=== PATIENT | male | born 1955 | race Two or more races ===

== ENCOUNTER 2024-08-28 14:53 | Outpatient (CLI) | payer BC, SELFPAY ==
[2024-08-28 15:24] LABS: Basophils Absolute Auto 0.04 K/mm3 (0.00-0.10); Basophils Percent Auto 0.5 % (0.0-1.0); Eosinophils Absolute Auto 0.22 K/mm3 (0.02-0.50); Eosinophils Percent Auto 2.8 % (1.0-6.0); Hematocrit 40.7 % (37.0-46.0); Hemoglobin 12.8 g/dL (12.4-15.3); Immature Granulocyte Absolute 0.05 K/mm3 (0.00-0.00); Immature Granulocyte Percent A 0.6 % (0.0-0.0); Lymphocytes Absolute Auto 1.75 K/mm3 (1.10-4.50); Lymphocytes Percent Auto 22.5 % (18.0-42.0); Mean Corpuscular HGB Conc 31.4 g/dL (32-36); Mean Corpuscular Hemoglobin 29.4 pg (27.0-31.0); Mean Corpuscular Volume 93.6 fL (78.0-102.0); Mean Platelet Volume 12.5 fl (8.7-11.0); Monocytes Absolute Auto 0.89 K/mm3 (0.10-0.90); Monocytes Percent Auto 11.4 % (2.0-11.0); Neutrophils Absolute Auto 4.83 K/mm3 (1.70-7.20); Neutrophils Percent Auto 62.2 % (50.0-70.0); Platelet Count Result 133 K/mm3 (150-420); Red Blood Count 4.35 M/mm3 (4.70-6.10); Red Cell Distribution Width 13.1 % (11.6-14.4); White Blood Count 7.8 K/mm3 (4.8-10.8)
[2024-08-28 15:34] LABS: Hemoglobin A1C 6.6 % (<5.7)
[2024-08-28 16:40] LABS: Alanine Aminotransferase 38 U/L (6-50); Alkaline Phosphatase 119 U/L (38-126); Anion Gap 5 mmol/L (4-12); Aspartate Amino Transferase 36 U/L (17-59); Bilirubin,Total 0.5 mg/dL (0.2-1.3); Blood Urea Nitrogen 31 mg/dL (9-20); Calcium 9.5 mg/dL (8.4-10.2); Carbon Dioxide 26 mmol/L (22-30); Chloride 109 mmol/L (98-107); Estimated Glomerular Filt Rate 45; Glucose 145 mg/dL (65-110); Osmolality Calculated 299 mOsm/kg (285-295); Potassium 4.3 mmol/L (3.4-5.0); Sodium 140 mmol/L (137-145); Total Protein 6.6 g/dL (6.3-8.2)
--- OUTSIDE RECORDS SUMMARY | 2024-08-28 17:31 | XMS_ITS ---
Author Organization [facility] Address [address] [place] [address] Care Team Providers Care Progress Man Name Role Phone Trudi Davis RN Unavailable [phone] Vinay Schmitt MD Unavailable Glenna Garcia MD Primary Care Provider Transplant Episode Kidney Recipient [facility] ([place], [place]) - [facility] Transplanted on 10/13/2004 Marked as Active Follow-up on 08/21/2017 Kidney CoordinatorTrudi Davis RN Fax: N/A Email: N/A Transplanted Elsewhere: [facility] ([place], [place]) - [facility] Coordinator: Phone: Fax: Care Team Name Role Phone Fax Email Trudi Davis RN Kidney Coordinator [phone] N/A N/A Ivelisse Kat Primary Advanced Research Programs Director N/A N/A N/A Aurea Walsh RN Secondary Coordinator Secondary Kidney Coordinator [phone] N/A N/A Tyra Dukes Secondary Advanced Research Programs Director N/A N/A N/A Trudi Davis RN Sandal Parts Assembler [phone] N/A N/A Events Post-Transplant Pre-Transplant Transplanted: 10/13/2004
--- OUTSIDE RECORDS SUMMARY | 2024-08-28 17:31 | XMS_ITS | Referral Summary ---
Author Organization [facility] Address [address] [place] [address] Care Team Providers Care Magazine Worker Name Role Phone Trudi Davis RN Unavailable [phone] Vinay Schmitt MD Unavailable Glenna Garcia MD Primary Care Provider Encounters Date Type Department Care Team Description 08/26/2024 7:06 AM CDT - 08/26/2024 11:59 PM CDT Hospital Encounter [facility] Imaging [address] [place] [address] Left elbow pain Discharge Disposition: Discharge to home or self care 08/26/2024 8:30 AM CDT Office Visit [facility] Hand Surgery [address] [facility] [address] [place] [phone] Dakota Calderon MD Left elbow pain (Primary Dx); Numbness and tingling of left hand; Cubital tunnel syndrome on left from Last 3 Months Allergies Active Allergy Reactions Criticality Noted Date Comments Dapagliflozin Nausea & Vomiting Low 04/28/2022 Lisinopril Cough Low 06/03/2013 Medications BD Ultra-Fine Erika Pen Needle 32 gauge x needleIndication s:Uncontrolled type 2 diabetes mellitus with hyperglycemia (HCC),Insulin long-term use (HCC) 4 times as instructed. 360 each 3 05/28/19 23 Active insulin syringe-needle U-100 (BD Insulin Syringe Ultra-Fine) 0.3 mL 31 gauge x 5/16 syringeIndicatio ns:Type 2 diabetes mellitus with hyperglycemia, with long-term current use of insulin (HCC),Insulin long-term use ([facility]) Use to inject 3 times a day. 300 each 3 04/10/19 24 Active terazosin (HYTRIN) 5 mg capsule Take 1 capsule (5 mg total) by mouth daily 90 capsule 3 12/28/19 24 Active aspirin 81 mg chewable tablet Take 1 tablet (81 mg total) by mouth daily 90 tablet 3 01/08/20 24 Active atorvastatin (Lipitor) 80 mg tablet Take 1 tablet (80 mg total) by mouth daily 90 tablet 3 03/07/20 24 025 Active mycophenolate mofetil (CELLCEPT) 250 mg capsule Take 2 capsules (500 mg total) by mouth 2 (two) times a day 360 capsule 4 03/07/20 24 Active Prograf 1 mg immediate-releas e capsule TAKE 2 CAPSULES BY MOUTH TWICE DAILY. AVOID GRAPEFRUIT 360 capsule 3 03/07/20 24 Active losartan (COZAAR) 25 mg tablet Take 1 tablet (25 mg total) by mouth daily AND 0.5 tablets (12.5 mg total) nightly. 25 am 12.5 pm. 135 tablet 3 03/07/20 24 025 Active BD Insulin Syringe, half unit, 0.3 mL 31 gauge x 5/16 syringe 12/26/19 24 Active cyanocobalamin (Vitamin B-12) 500 mcg tablet Take 1 tablet (500 mcg total) by mouth daily 90 tablet 3 03/14/20 24 Active insulin lispro (HumaLOG, ADMELOG) 100 unit/mL vial for injectionIndicat ions:Insulin long-term use ([facility]) Inject 5-8 (5 small meal, 8 large meal) units SubQ AC meal, insulin sensitivity factor 25 (add 2 unit for every 50mg/dl glucose more than 150mg/dl). Max 60 units/day 60 mL 3 03/15/20 24 025 Active FreeStyle Jong 3 Sensor deviceIndication s:Insulin long-term use ([facility]) Jong 3 sensor, use to monitor blood glucose levels as directed. Change every 14 days. 6 each 3 03/15/20 24 Active predniSONE (DELTASONE) 2.5 mg tablet Take 1 tablet (2.5 mg) by mouth daily 90 tablet 3 03/29/19 25 Active LANTUS 100 unit/mL (3 mL) pen for injectionIndicat ions:Type 2 diabetes mellitus with hyperglycemia, with long-term current use of insulin (HCC),Insulin long-term use (HCC) INJECT 21 UNITS SUBCUTANEOUSLY IN THE MORNING 30 mL 1 07/05/19 25 Active rivaroxaban (XARELTO) 2.5 mg tablet Take 1 tablet (2.5 mg total) by mouth 2 (two) times a day Active Brilinta 90 mg tablet Take 1 tablet (90 mg total) by mouth 2 (two) times a day 025 Discontin ued(Thera py completed ) Active Problems Patient Care Coordination No te Formatting of this note migh t be different from the original. Lab: [facility] SO: Q-Monthly UPE, FK; Q-3 Routine HGBA1C (05/23/2025) Problem Noted Date Diagnosed Date Cubital tunnel syndrome on left 08/26/2024 Left elbow pain 08/26/2024 Numbness and tingling of left hand 08/21/2023 Encounter for long-term (cur rent) use of high-risk medication 03/09/2020 Dyslipidemia 03/09/2020 Early dry stage nonexudative age-related macular degeneration of both eyes 08/02/2018 Assessment & Plan (11/08/2021 1:37 PM CDT): Continue Amsler grid and call if any visual changes. Can consider AREDS 2 formulation vitamins given intermediate sized drusen. Continue healthy diet and UV protection. Follow annually or sooner prn. Assessment & Plan (08/02/2018 9:46 AM CDT): Gave Amsler grid and instructions. Encourage healthy diet and UV protection. Cataract, nuclear sclerotic, both eyes 9 Assessment & Plan (11/08/2021 1:36 PM CDT): NVS, follow. Assessment & Plan (08/02/2018 9:46 AM CDT): NVS, follow. Optic nerve cupping of both eyes 08/02/2018 Assessment & Plan (11/08/2021 1:37 PM CDT): Moderate CDR OU and normal IOP, follow. Assessment & Plan (08/02/2018 9:47 AM CDT): Low-nl IOP and healthy optic nerve appearance. Follow. STEMI (ST elevation myocardial infarction) 11/14 Assessment & Plan (11/17/2017 11:39 AM CDT): Presented to OSH with CP radiating to jaw. EKG with IDALIA in inferior leads and TWI in lateral leads. Troponin neg x 2. Taken to rags laborer and got stents to RCA. Trop uptrended from 0.12 to 1.73 overnight Plan for staged intervention to LAD to LCx. - ASA, Plavix, statin, metoprolol - TTE normal Troponin elevated from 3 to 4.59 with some chest discomfort Status post Staged intervention today to LAD and Circumflex Assessment & Plan (11/15/2017 7:06 AM CDT): Presented to OSH with CP radiating to jaw. EKG with IDALIA in inferior leads and TWI in lateral leads. Troponin neg x 2. Taken to rags laborer and got stents to RCA. Plan for staged intervention to LAD to LCx. - ASA, Plavix, statin, metoprolol - TTE CAD (coronary artery disease) 11/14/2017 Assessment & Plan (11/17/2017 11:40 AM CDT): Last stress TTE 2002 negative. Presented with inferolateral STEMI Status post PCI with 3 v stenting to LAD, circ and RCA - ASA, Plavix, metoprolol, atorvastatin Assessment & Plan (11/14/2017 8:03 PM CDT): Last stress TTE 2002 negative. - ASA, Plavix, metoprolol, atorvastatin Hypertension 05/01/2017 Assessment & Plan (11/15/2017 1:06 PM CDT): Continue metoprolol 25 mg, amlodipine 2.5, clonidine 0.1 mg daily Lisinopril was trialed but discontinued due to worsening of kidney function Assessment & Plan (11/14/2017 8:03 PM CDT): ctn amlodipine, clonidine, metoprolol. Previously trialed on ACEI but developed SHEILA. 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 Continue strict BS control, annual dilated eye exams. Assessment & Plan (08/02/2018 9:45 AM CDT): No retinopathy on dilated eye exam today. Okay to follow with annual dilated eye exams Assessment & Plan (11/15/2017 12:57 PM CDT): Post transplant diabetes secondary to tacrolimus and terminal operator use of steroids Hold home metformin and glimeperide Start LDSSI Assessment & Plan (11/14/2017 8:03 PM CDT): posttransplant DM. 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 F/b nephrology here. - Ctn prednisone, prograf, cellcept - Renal transplant aware of admission Immunizations Immunization Administration Dates Next Due Influenza, Unspecified 12/19/2022 Pfizer SARS-CoV-2 Monovalent Vaccination (12+ Yrs) COSTELLO-READY TO USE 10/05/2021 Pneumococcal Conjugate PCV 13 06/03/2013 Social History Tobacco Use Types Packs/Day Years Used Date Smoking Tobacco: Former Cigarettes 0.5 5 1 985 - 1989 Passive Smoke Exposure: Never Smokeless Tobacco: Never Tobacco Cessation:Counseling Given: Not Answered Alcohol Use Standard Drinks/Week Comments No 0 (1 standard drink = 0.6 oz pur e alcohol) AUDIT-C Answer Date Recorded Q1: How often do you have a drink containing alcohol? Never 08/27/2024 Q2: How many drinks containi ng alcohol do you have on a typical day when you are drinking? Patient does not drink Q3: How often do you have si x or more drinks on one occasion? 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 Not on file Not on file Last Filed Vital Signs Vital Sign Reading Time Taken Comments Blood Pressure 142/84 03/07/2024 4:20 PM UTILIZATION ENGINEER Pulse 74 03/07/2024 4:20 PM UTILIZATION ENGINEER Temperature 36.4 C (97.6 F) 03/07/2024 4:20 PM UTILIZATION ENGINEER Respiratory Rate 18 07/25/2023 1:59 PM CDT Oxygen Saturation 96% 07/25/2023 1:59 PM CDT Inhaled Oxygen Concentration - - Weight 68 kg (150 lb) 08/27/2024 9:05 AM CDT Height 162.6 cm (5' 4) 08/27/2024 9:05 AM CDT Body Mass Index 25.75 08/27/2024 9:05 AM CDT Plan of Treatment Upcoming Encounters Date Type Department Care Team (Latest Contact Info) Description 08/29/2024 11:00 AM CDT Hospital Encounter [facility] [place] [address] [place] [address] Dakota Calderon MD [address] [facility] [place] [address] 08/29/2024 11:00 AM CDT Anesthesia Event [facility] [place] [address] [place] [address] Drake Jackson MD [address] [address] 08/29/2024 11:00 AM CDT - 08/29/2024 12:00 PM CDT Surgery [facility] [place] [address] [place] [address] Dakota Calderon MD [address] [address] LEFT ELBOW ULNAR NERVE DECOMPRESSION Scheduled Procedures Name Priority Associated Diagnoses Date/Ti me DECOMPRESSION ULNAR NERVE Cubital tunnel syndrome on left Left elbow pain 08/29/2024 11:00 AM CDT Medical Devices Implanted Type Area Underwater Welder Device Identifier Shelf Expiration Date Model / Serial / Lot [employer]onic [employer] X [id number] Resolute [place] 3.5mm 2.1-2.7fr 38mm 140cm Rapid Exchange - [id number] Implanted:Qty: 1 on 11/14/2017 by Pepe Dawkins MD at [facility] Stent [employer] X 06/23/2019 [id number] X / / [id number] [employer] X [id number] Resolute [place] 4mm 2.1-2.7fr 8mm 140cm Rapid Exchange Radiopaque 1 - [id number] Implanted:Qty: 1 on 11/14/2017 by Pepe Dawkins MD at [facility] Stent [employer] X 06/22/2019 [id number] X / / [id number] [employer] [id number] Xience Alpine 3.5mm 38mm 145cm Rapid Exchange Radiopaque 1 Access - [id number] Implanted:Qty: 1 on 11/16/2017 by Pepe Dawkins MD at [facility] [employer] 02/16/2020 [id number] / / [id number] [employer] [id number] Xience Alpine 3.5mm 38mm 145cm Rapid Exchange Radiopaque 1 Access - [id number] Implanted:Qty: 1 on 11/16/2017 by Pepe Dawkins MD at [facility] [employer] 05/21/2020 [id number] Procedures Procedure Name Priority Date/Time Associated Diagnosis Comments EGFR Routine 05/27/2024 10:44 AM CDT Kidney replaced by transplant POCT HEMOGLOBIN A1C Routine 03/07/2024 4 :33 PM UTILIZATION ENGINEER Type 2 diabetes mellitus with hyperglycemia, with long-term current use of insulin (HCC) LIPID PANEL Routine 09/26/2023 5:11 PM CDT Kidney transplanted Hyperlipidemia, unspecified hyperlipidemia type PSA SCREEN Routine 02/14/2023 10:31 AM UTILIZATION ENGINEER Kidney transplant recipient TSH Routine 12/22/2022 11:23 AM CDT Uncontrolled type 2 diabetes mellitus with hyperglycemia (HCC) from Last 3 Months or Most Recently Relevant to Health Maintenance Results * (ABNORMAL) eGFR (05/27/2024 10:44 AM CDT) eGFR 45(L) >=60 mL/min/1. 73 m2 Comment: Interpretive Data Reference Interval Normal >/= 90 mL/min/1.73m2 Mildly decreased* 60 - 89 mL/min/1.73m2 Mildly to moderately decreased 45 - 59 mL/min/1.73m2 Moderately to severely decreased 30 - 44 mL/min/1.73m2 Severely decreased 15 - 29 mL/min/1.73m2 Kidney Failure < 15 mL/min/1.73m2 *Relative to young adult level Estimated glomerular filtration rate is determined by the 2020 CKD-EPI equation recommended by the National Kidney Foundation (A Unifying Approach to GFR Estimation: Recommendations of the NKF-ASK Task Force on Reassessing the Inclusion of Race in Diagnosing Kidney Disease, JASN 2020). The CKD-EPI equation should not be used for patients with unstable renal function and has not been validated in children and those over 70. Current interpretive data was last reviewed 2021. Blood 05/27/2024 10:4 4 AM CDT 05/27/2024 11:53 AM CDT Glenna Garcia MD LAB BLOOD ORDERABLES Final Resu lt [facility] [place] [address] * POCT hemoglobin A1c (03/07/2024 4:33 PM UTILIZATION ENGINEER) Hemoglobin A1C, POC 7.0 4.0 - 5.6 % Blood 03/07/2024 4:33 PM UTILIZATION ENGINEER Jane Mccarty MD POINT OF CARE TEST ORDERABLES Fi nal Result * Lipid panel (09/26/2023 5:11 PM CDT) Cholesterol 132 30 - 199 mg/dL Comment: Interpretive Data Ages < or = 19 years Acceptable: <170 mg/dL Borderline high: 170-199 mg/dL High: >or= 200 mg/dL Ages > or = 20 years Desirable: <200 mg/dL Borderline high: 200-239 mg/dL High: >or= 240 mg/dL Literature References: 1. Expert Panel on Integrated Guidelines for Cardiovascular Health and Risk Reduction in Children and Adolescents. Pediatrics 2011;128:S213 2. NCEP Expert Panel. Circulation 2004;110:227 Current Interpretive Data was last revised on 2017. Triglycerides 100 <=149 mg/dL [facility] Comment: Interpretive Data Ages < or = 9 years Acceptable: <75 mg/dL Borderline high: 75-99 mg/dL High: >or= 100 mg/dL Ages 10 to 20 years Acceptable: <90 mg/dL Borderline high: 90-129 mg/dL High: >or= 130 mg/dL Ages > or = 20 years Desirable: <150 mg/dL Borderline high: 150-199 mg/dL High: 200-499 mg/dL Very high: >or= 499 mg/dL Literature References: 1. Expert Panel on Integrated Guidelines for Cardiovascular Health and Risk Reduction in Children and Adolescents. Pediatrics 2011;128:S213 2. NCEP Expert Panel. Circulation 2004;110:227 Current Interpretive Data was last revised on 2017. HDL 50 >=40 mg/dL [facility] Comment: Interpretive Data Ages < or = 19 years Acceptable: >45 mg/dL Borderline low: 40-45 mg/dL Low: <40 mg/dL Ages > or = 20 years Desirable: >or= 60 mg/dL Low: <40 mg/dL Literature References: 1. Expert Panel on Integrated Guidelines for Cardiovascular Health and Risk Reduction in Children and Adolescents. Pediatrics 2011;128:S213 2. NCEP Expert Panel. Circulation 2004;110:227 Current Interpretive Data was last revised on 2017. LDL, calculated 62 <=129 mg/dL [facility] Comment: Interpretive Data Ages < or = 19 years Acceptable: <110 mg/dL Borderline high: 110-129 mg/dL High: >or= 130 mg/dL Ages > or = 20 years Optimal: <100 mg/dL Near optimal: 100-129 mg/dL Borderline high: 130-159 mg/dL High: >160 mg/dL Literature References: 1. Expert Panel on Integrated Guidelines for Cardiovascular Health and Risk Reduction in Children and Adolescents. Pediatrics 2011;128:S213 2. NCEP Expert Panel. Circulation 2004;110:227 Current Interpretive Data was last revised on 2017. Non-HDL Cholesterol 82 mg/dL [facility] Comment: Interpretive Data Ages < or = 19 years Acceptable: <120 mg/dL Borderline high: 120-144 mg/dL High: >145 mg/dL Ages > or = 20 years When triglycerides are >200 mg/dL, Non-HDL cholesterol is a secondary target of therapy with treatment goals that are 30 mg/dL greater than the LDL cholesterol target. Literature References: 1. Expert Panel on Integrated Guidelines for Cardiovascular Health and Risk Reduction in Children and Adolescents. Pediatrics 2011;128:S213 2. NCEP Expert Panel. Circulation 2004;110:227 Current Interpretive Data was last revised on 2017. Chol/HDL ratio 3 [facility] Blood 09/26/2023 5:11 PM CDT 09/26/2023 5:38 PM CDT Narrative [facility] - 09/26/2023 6:11 PM CDT PLEASE OBTAIN ELY, APR, SEP AND DEC. Glenna Garcia MD LAB BLOOD ORDERABLES Final Resu lt [facility] [place] [address] * PSA screen (02/14/2023 10:31 AM UTILIZATION ENGINEER) PSA-Total 0.79 <=5.40 ng/mL [facility] Comment: Interpretive Data AGE SEX REFERENCE INTERVAL 0 minutes-150 years Female None 0 minutes-49 years Male None 50-59 years Male 0-3.90 60-69 years Male 0-5.40 70-79 years Male 0-6.20 80-150 years Male 0-6.20 The Object Matrix PSA Total assay procedure was used. Results from different manufacturers or methods may not be comparable. Serial testing should be performed using the same method. Current interpretive data last revised 21. Blood 02/14/2023 10:3 1 AM UTILIZATION ENGINEER 02/14/2023 10:58 AM UTILIZATION ENGINEER us Marsha Oliver MD LAB BLOOD ORDERABLE S Final Result Performing Organization Address [facility] Co de Phone Number [facility] [place] [address] * TSH (12/22/2022 11:23 AM CDT) Thyroid Stimulating Hormone 3.15 0.30 - 4.20 mcIUnit/mL [facility] Blood 12/22/2022 11:2 3 AM CDT 12/22/2022 11:43 AM CDT Emili Cazares MD LAB BLOOD ORDERABL ES Final Result Performing Organization Address [facility] Co de Phone Number [facility] [place] [address] from Last 3 Months or Most Recently Relevant to Health Maintenance Insurance [facility] CHOICE PLUS [facility] HMO/PPO Address: [address] [address] [place] [address] ANTHEM ACCESS BLUE ACCESS OOS ANTHEM ACCESS ANTHEM ACCESS Advance Directives For more information, please contact: [phone] * Full Code (Latest Code Status on File) Date Activated Date Inactivated Comments 11/15/2017 7:35 PM 11/17/2017 3:30 PM * Full Code Date Activated Date Inactivated Comments 11/14/2017 6:44 PM 11/15/2017 7:35 PM Care Teams Magazine Worker Relationship Specialty Start Date End Date Glenna Garcia MD [address] [place] [address] PCP - General Transplant 12/31/21 Trudi Davis, RN [address] [place] [address] Sheet Folder 09/23/19 Vinay Schmitt MD [address] [place] [address] Consulting Physician Cardiology 12/07/21
--- OUTSIDE RECORDS SUMMARY | 2024-08-28 17:31 | XMS_ITS | Encounter Summary ---
Author Organization [facility] Address [address] [place] [address] Phone Care Team Providers Care Geophysics Professor Name Role Phone Ping Gooden Primary Care Provider Unavail able Ping Gooden MD Primary Care Provider Trudi Davis RN Unavailable [phone] Vinay Schmitt MD Unavailable Glenna Garcia MD Primary Care Provider [phone] Encounter Details Date Type Department Care Team (Late st Contact Info) Description 02/06/2017 Orders Only [facility] ProviderKristan MD [address] [place] [address] Social History Tobacco Use Types Packs/Day Years Used Date Smoking Tobacco: Never Assessed Sex and Gender Information Value Date Recorded Sex Assigned at Not on file Legal Sex Male 5:57 PM CHAIRMAN AND CHIEF EXECUTIVE OFFICER Gender Identity Not on file Sexual Orientation Not on file documented as of this encounter Plan of Treatment Upcoming Encounters Date Type Department Care Team (Latest Contact Info) Description 08/29/2024 11:00 AM CDT Hospital Encounter [facility] [place] [address] [place] [address] Dakota Calderon MD [address] [facility] [address] [address] 08/29/2024 11:00 AM CDT Anesthesia Event [facility] [place] [address] [place] [address] Drake Jackson MD [address] [facility] [address] [place], [place] [id number] 08/29/2024 11:00 AM CDT - 08/29/2024 12:00 PM CDT Surgery [facility] [place] [address] [place] [address] Dakota Calderon MD [address] [facility] [address] [place] [address] LEFT ELBOW ULNAR NERVE DECOMPRESSION Scheduled Procedures Name Priority Associated Diagnoses Date/Ti me DECOMPRESSION ULNAR NERVE Cubital tunnel syndrome on left Left elbow pain 08/29/2024 11:00 AM CDT documented as of this encounter Procedures Procedure Name Priority Date/Time Associated Diagnosis Comments DISCHARGE LABORATORY CUMULATIVE REPORT 02/06/2017 12:00 AM CHAIRMAN AND CHIEF EXECUTIVE OFFICER documented in this encounter Results * DISCHARGE LABORATORY CUMULATIVE REPORT (02/06/2017 12:00 AM CHAIRMAN AND CHIEF EXECUTIVE OFFICER) Narrative 02/06/2017 12:00 AM CHAIRMAN AND CHIEF EXECUTIVE OFFICER Ordered by an unspecified provider. Historical Provider LAB BLOOD ORDERABLES Radha l Result documented in this encounter Visit Diagnoses Not on filedocumented in this encounter Care Teams Geophysics Professor Relationship Specialty Start Date End Date Ping Gooden PCP - General 06/23/16 09/30/18 Ping Gooden MD [address] [place] [address] PCP - General 10/01/18 12/06/21 Glenna Garcia MD [address] [facility] [address] [place] [address] PCP - General Transplant 12/31/21 Trudi Davis, RN [address] [place] [address] Report Analyst 09/23/19 Vinay Schmitt MD [address] [address] Consulting Physician Cardiology 12/07/21 documented as of this encounter
--- OUTSIDE RECORDS SUMMARY | 2024-08-28 17:31 | XMS_ITS | Encounter Summary ---
Author Organization [facility] Healthcare Address [address] [facility] [address] [facility] [address] [place] [address] Care Team Providers Care Coke Drawer Hand Name Role Phone Trudi Davis RN Unavailable [phone] Vinay Schmitt MD Unavailable Glenna Garcia MD Primary Care Provider [phone] Encounter Details Date Type Department Care Team (Latest Contact Info) Description 08/26/2024 7:06 AM CDT - 08/26/2024 11:59 PM CDT Hospital Encounter [facility] [address] [place] [address] Left elbow pain Discharge Disposition: Discharge to home or self care Social History Tobacco Use Types Packs/Day Years Used Date Smoking Tobacco: Former Cigarettes 0.5 5 1 985 - 1989 Passive Smoke Exposure: Never Smokeless Tobacco: Never Alcohol Use Standard Drinks/Week Comments No 0 [...] on file Legal Sex Male 5:57 PM [employer] Gender Identity Not on file Sexual Orientation Not on file 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 360 each 3 3 cyanocobalamin (Vitamin B-12) 500 mcg tablet Take 1 tablet (500 mcg total) by mouth daily 90 tablet 3 4 FreeStyle Jong 3 Sensor deviceIndications: Insulin long-term use (HCC) Jong 3 sensor, use to monitor blood glucose levels as directed. Change every 14 days. 6 each 3 4 insulin lispro (HumaLOG, ADMELOG) 100 unit/mL vial for injectionIndicatio ns:Insulin long-term use (HCC) Inject 5-8 (5 small meal, 8 large meal) units SubQ AC meal, insulin sensitivity factor 25 (add 2 unit for every 50mg/dl glucose more than 150mg/dl). Max 60 units/day 60 mL 3 4 03/15/20 25 insulin syringe-needle U-100 (BD Insulin Syringe Ultra-Fine) 0.3 mL 31 gauge x 5/16 syringeIndications :Type 2 diabetes mellitus with hyperglycemia, with long-term current use of insulin (HCC),Insulin long-term use (HCC) Use to inject 3 times a day. 300 each 3 4 LANTUS 100 unit/mL (3 mL) pen for injectionIndicatio ns:Type 2 diabetes mellitus with hyperglycemia, with long-term current use of insulin (HCC),Insulin long-term use (HCC) INJECT 21 UNITS SUBCUTANEOUSLY IN THE MORNING 30 mL 1 5 losartan (COZAAR) 25 mg tablet Take 1 tablet (25 mg total) by mouth daily AND 0.5 tablets (12.5 mg total) nightly. 25 am 12.5 pm. 135 tablet 3 4 03/07/20 25 mycophenolate mofetil (CELLCEPT) 250 mg capsule Take 2 capsules (500 mg total) by mouth 2 (two) times a day 360 capsule 4 4 predniSONE (DELTASONE) 2.5 mg tablet Take 1 tablet (2.5 mg) by mouth daily 90 tablet 3 5 Prograf 1 mg immediate-release capsule TAKE 2 CAPSULES BY MOUTH TWICE DAILY. AVOID GRAPEFRUIT 360 capsule 3 4 rivaroxaban (XARELTO) 2.5 mg tablet Take 1 tablet (2.5 mg total) by mouth 2 (two) times a day terazosin (HYTRIN) 5 mg capsule Take 1 capsule (5 mg total) by mouth daily 90 capsule 3 4 Brilinta 90 mg tablet Take 1 tablet (90 mg total) by mouth 2 (two) times a day 08/28/19 25 documented as of this encounter Discharge Disposition Disposition Code Departure Means Destination Discharge to home or self care documented in this encounter Plan of Treatment Upcoming Encounters Date Type Department Care Team (Latest Contact Info) Description 08/29/2024 11:00 AM CDT Hospital Encounter [facility] OR [address] [place] [id number] Dakota Calderon MD [address] [place] [address] DR FRIEDMAN [address] [place] [id number] 08/29/2024 11:00 AM CDT Anesthesia Event [facility] OR [address] [place] [id number] Drake aJckson MD [address] [place] [id number] 08/29/2024 11:00 AM CDT - 08/29/2024 12:00 PM CDT Surgery [facility] OR [address] [place] [id number] Dakota Calderon MD [address] [place] [address] [place] [address] LEFT ELBOW ULNAR NERVE DECOMPRESSION Pending Results Name Type Priority Associated Diagnoses Date /Time XR Elbow Left 3 or More Views Imaging Schedule Routine, Read Routine (OP Routine) Left elbow pain 08/26/2024 7:11 AM CDT Scheduled Orders Name Type Priority Associated Diagnoses Orde r Schedule XR Elbow Left 3 or More Views Imaging Schedule Routine, Read Routine (OP Routine) Left elbow pain Once for 1 Occurrences starting 08/26/2024 until 08/26/2024 Scheduled Procedures Name Priority Associated Diagnoses Date/Ti me DECOMPRESSION ULNAR NERVE Cubital tunnel syndrome on left Left elbow pain 08/29/2024 11:00 AM CDT documented as of this encounter Visit Diagnoses Diagnosis Left elbow pain Pain in joint, upper arm Cubital tunnel syndrome on left Left elbow pain Pain in joint, upper arm Cubital tunnel syndrome on left Left elbow pain Pain in joint, upper arm documented in this encounter Care Teams Coke Drawer Hand Relationship Specialty Start Date End Date Glenna Garcia MD [address] [place] [address] PCP - General Transplant 12/31/21 Trudi Davis RN [address] [place] [address] Clinical Research Specialist 09/23/19 Vinay Schmitt MD [address] [place] [address] Consulting Physician Cardiology 12/07/21 documented as of this encounter
--- OUTSIDE RECORDS SUMMARY | 2024-08-28 17:31 | XMS_ITS | CONTINUITY OF CARE DOCUMENT ---
Author Name erica erica Address Unknown Organization [facility] Office Address [address] [place] [address] Phone [phone] Care Team Providers Care Mirror Maker Name Role Phone Oskar FULLER, Vinay Unavailable [phone] ROBERTO CARLOS VILLARREAL MD Unavailable PROBLEMS Condition Status Date Provider Notes Coronary Heart Disease active [facility] Oskar Weber Diabetes, Type 2 active [facility] Oskar FULLER Hyperlipidemia active Vinayman Schmitt MD Hypertension active [facility] Oskar FULLER Kidney Disease active [facility] Oskar FULLER ENCOUNTERS Date Type Provider Location Encounter Diag nosis - In-person encounter Office Visit [facility] - In-person encounter Office Visit [facility] Coronary Heart DiseaseDiabetes, Type 2HyperlipidemiaHype rtensionKidney Disease VITAL SIGNS Date Observation Value Provider Body Mass Index (Ratio) 27.46 kg/m2 Demarcusdamari bienvenido Shane blood pressure, resting Yes [place] child O'Geovani blood pressure, diastolic 80 mm[Hg] Ma rsha O'Geovani blood pressure, systolic 122 mm[Hg] Jemma sha O'Geovani oxygen saturation, oximetry 97 % Griselda O'Geovani respiratory rate E&M 18 /min Griselda O'Geovani pulse rate 67 /min Griselda O'Geovani weight E&M 160 [lb_av] Griselda O'Geovani height E&M 64 [in_i] Griselda O'Geovani Body Mass Index (Ratio) 27.32 kg/m2 man Schmitt MD blood pressure, diastolic 119 mm[Hg] Li nkLogic blood pressure, systolic 175 mm[Hg] Gayle kLogic blood pressure, cuff size large Br enda Moutray blood pressure, diastolic 119 mm[Hg] Br enda Moutray blood pressure, systolic 175 mm[Hg] Katja nda Moutray oxygen saturation, oximetry 99 % Pari Moutray respiratory rate E&M 16 /min Pari Moutray pulse rate 60 /min Pari Moutray weight E&M 159.2 [lb_av] Pari Moutray height E&M 64 [in_i] Pari Moutray ALLERGIES No Known Drug Allergies HISTORY OF MEDICATION USE Medication Status Instructions Dates Provider Indications Com colleens Xarelto 2.5 mg tablet active TAKE 1 TABLET TWICE A DAY PRESCRIBED TO REDUCE THE RISK OF MAJOR CARDIOVASCULAR EVENTS (CARDIOVASCULAR , MYOCARDIAL INFARCTION AND STROKE) IN PATIENTS IN CHRONIC CORONARY ARTERY DISEASE OR PERIPHERAL ARTERIAL DISEASE Nahomi Calderon Xarelto 2.5 mg tablet completed Take 1 tablet by mouth twice a day Prescribed to reduce the risk of major cardiovascular events(CV , FL and stroke) in patients with chronic CAD or PAD - Nahomi Calderon diltiazem HCl 30 mg tablet active Take 1/2 tablet by mouth three times a day Griselda Connell aspirin 81 mg tablet,chewable active TAKE 1 Tablet BY MOUTH DAILY Griselda Connell rosuvastatin 40 mg tablet active Take 1 tablet by mouth once a day Griselda Connell Prograf 1 mg capsule active Oskar FULLER prednisone 2.5 mg tablet active Oskar FULLER glimepiride 1 mg tablet active Take 1 tablet by mouth once a day Griselda Connell clopidogrel 75 mg tablet completed Take 1 tablet by mouth once a day - Vinay Schmitt MD mycophenolate mofetil 250 mg capsule active Take 1 capsule by mouth once a day Griselda Connell metformin 500 mg tablet active Take 1 tablet by mouth twice a day Griselda Connell terazosin 5 mg capsule active Vinay Schmitt MD metoprolol tartrate 25 mg tablet completed Take 1 tablet by mouth once a day - Vinay Schmitt MD SOCIAL HISTORY Date Observation Value Provider smoking status Former smoker Griselda Edouard l social history E&M Patient is a former smoker. A lcohol Use - no Smoking History: Man pro is a former smoker. Vinay Schmitt MD smoking status Former smoker Pari Guevara russel FUNCTIONAL STATUS Date Observation Value Provider HRA, CV Assess/Plan, Angina (inactive) Management Plan continue current therapy Vinay Schmitt MD INSURANCE PROVIDERS Payer name Policy type / Coverage type Marshall red green party ID [facility] [id number] ADVANCE DIRECTIVES Name Date DISCUSSED - NO DECISION MADE TREATMENT PLAN Date Name Performer [id number],C,n o cp n egative stress test d oe - feels its due to lack of exercise d id not get bnp levels Vinay Schmitt MD [id number],C, H is updated medication list for this problem includes: Rosuvastatin 40 Mg Tablet (Rosuvastatin) ..... Take 1 tablet by mouth once a day Vinay Schmitt MD [id number],C, T he following medications were removed from the medication list: Metoprolol Tartrate 25 Mg Tablet (Metoprolol tartrate) ..... Take 1 tablet by mouth once a day His updated medication list for this problem includes: Diltiazem Hcl 30 Mg Tablet (Diltiazem hcl) ..... Take 1/2 tablet by mouth three times a day Aspirin 81 Mg Tablet,chewable (Aspirin) ..... Take 1 tablet by mouth daily Terazosin 5 Mg Capsule (Terazosin) advised to stop terazosin and tke amsulsin for bph instead Vinay Oskar FULLER [id number],C,h as proteinuria a dvised to consider sglt-2 inhibitor Oskar FULLER [id number],C,8 .1% p ancreatitis from glp-1 Vinay Oskar FULLER [id number],C,l ipid panel t otal 104, trigs 77, dhl 46, ld 43 His updated medication list for this problem includes: Rosuvastatin 40 Mg Tablet (Rosuvastatin) Oskar FULLER [id number],C,i ga nephropathy -esrd 1997 r enal transplant 2004, last 1.8 u acr 502 c ant take jessi/arb- goes into [facility] ? sglt-2 inhibitor Oskar FULLER [id number],C,2 018 - chest pains, wash u- inferior stemi and had 3 vessel dz, rca pci, then then lad andom PCI recommend risk modification d oe w ill do nt bnp and stress test e kg shows t inversion inferolateral leads recommend asa/xarelto - he wants to wait Vinay Oskar FULLER Cardiology:no cp n egative stress test d oe - feels its due to lack of exercise d id not get bnp levels Oskar FULLER Cardiology: H is updated medication list for this problem includes: Rosuvastatin 40 Mg Tablet (Rosuvastatin) ..... Take 1 tablet by mouth once a day Vinay Oskar FULLER Cardiology: T he following medications were removed from the medication list: Metoprolol Tartrate 25 Mg Tablet (Metoprolol tartrate) ..... Take 1 tablet by mouth once a day His updated medication list for this problem includes: Diltiazem Hcl 30 Mg Tablet (Diltiazem hcl) ..... Take 1/2 tablet by mouth three times a day Aspirin 81 Mg Tablet,chewable (Aspirin) ..... Take 1 tablet by mouth daily Terazosin 5 Mg Capsule (Terazosin) advised to stop terazosin and tke amsulsin for bph instead Vinay Schmitt MD Cardiology:has prote inuria a dvised to consider sglt-2 inhibitor Vinay Schmitt MD Cardiology:8.1% p ancreatitis from glp-1 Vinay Schmitt MD Cardiology:lipid virgen el t otal 104, trigs 77, dhl 46, ld 43 His updated medication list for this problem includes: Rosuvastatin 40 Mg Tablet (Rosuvastatin) Vinay Schmitt MD Cardiology:iga nephr opathy -esrd 1997 r enal transplant 2004, last 1.8 u acr 502 c ant take jessi/arb- goes into [facility] ? sglt-2 inhibitor Vinay Schmitt MD Cardiology:2018 - ch est pains, wash u- inferior stemi and had 3 vessel dz, rca pci, then then lad andom PCI recommend risk modification d oe w ill do nt bnp and stress test e kg shows t inversion inferolateral leads recommend asa/xarelto - he wants to wait Vinay Schmitt MD Date Name Complete Echo Stress Regadenoson BASIC METABOLIC PANE L W/EGFR CRP, high sensitivit y PROBNP, N TERMINAL HISTORY OF PROCEDURES Procedure Date Procedure Name Provider Procedure Notes S tatus EKG Vinay Schmitt MD completed
--- OUTSIDE RECORDS SUMMARY | 2024-08-28 17:31 | XMS_ITS | Clinical Summary ---
Author Organization [facility] Address [address] [place] [address] Care Team Providers Care Manager Retail Sales Name Role Phone Trudi Davis RN Unavailable [phone] Vinay Schmitt MD Unavailable Glenna Garcia MD Primary Care Provider [phone] Allergies Active Allergy Reactions Criticality Noted Date Comments Dapagliflozin Nausea & Vomiting Low 04/28/2022 Lisinopril Cough Low 06/03/2013 Medications BD Ultra-Fine Erika Pen Needle 32 gauge x 5/32 needleIndication s:Uncontrolled type 2 diabetes mellitus with [...] times a day 360 capsule 4 03/07/20 Active Prograf 1 mg immediate-releas e capsule [...] mL 31 gauge x 5/16 syringe 12/26/19 Active cyanocobalamin (Vitamin B-12) 500 mcg tablet Take 1 tablet (500 mcg total) by mouth daily 90 tablet 3 03/14/20 24 Active insulin lispro (HumaLOG, ADMELOG) 100 unit/mL vial for injectionIndicat ions:Insulin long-term use ([facility]) Inject 5-8 (5 small meal, 8 large meal) units SubQ AC meal, insulin sensitivity factor 25 (add 2 unit for every 50mg/dl glucose more than 150mg/dl). Max 60 units/day 60 mL 3 03/15/20 24 025 Active FreeStyle Jong 3 Sensor deviceIndication s:Insulin long-term use ([facility]) Jong 3 sensor, use to [...] current use of insulin (HCC),Insulin long-term use ([facility]) INJECT 21 UNITS SUBCUTANEOUSLY IN THE MORNING [...] t be different from the original. Lab: [facility] SO: Q-Monthly UPE, FK; Q-3 Routine [...] leads. Troponin neg x 2. Taken to geoscience laboratory technician and got stents to RCA. Trop uptrended [...] leads. Troponin neg x 2. Taken to geoscience laboratory technician and got stents to RCA. 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 Hold home metformin and [...] cellcept - Renal transplant aware of admission Encounters Date Type Department Care Team Description 08/26/2024 8:30 AM CDT Office Visit [facility] [address] [place] [address] [place] [phone] Dakota Calderon MD Left elbow pain (Primary Dx); Numbness and tingling of left hand; Cubital tunnel syndrome on left 08/26/2024 7:06 AM CDT - 08/26/2024 11:59 PM CDT Hospital Encounter [facility] [address] [place] [id number] Left elbow pain Discharge Disposition: Discharge to home or self care from Last 3 Months Immunizations Immunization Administration Dates Next Due Influenza, Unspecified 12/19/2022 Pfizer SARS-CoV-2 Monovalent Vaccination (12+ Yrs) COSTELLO-READY TO USE 10/05/2021 Pneumococcal Conjugate PCV 13 06/03/2013 Surgical History Surgery Date Site/Laterality Comments TRANSPLANTATION RENAL CARDIAC STENT PLACEMENT PERITONEAL CATHETER INSERTION PERITONEAL CATHETER REMOVAL COLONOSCOPY Medical History Medical History Date Comments HTN (hypertension) IgA nephropathy Renal transplant, status post Post-transplant diabetes mellitus (HCC) TJ on CPAP CAD (coronary artery disease) Hyperlipidemia Family History Medical History Relation Name Comments Hypertension Father Family history of hypertension - (Added by TW Conv) Hypertension Mother Family history of hypertension - (Added by TW Conv) Relation Name Status Comments Father Mother Social History Tobacco Use Types Packs/Day Years [...] on file Legal Sex Male 5:57 PM LOCAL ANNOUNCER Gender Identity Not on file Sexual Orientation Not on file 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 Not on file Not on file Obstetrics History Last Filed Vital Signs Vital Sign Reading Time Taken Comments Blood Pressure 142/84 03/07/2024 4:20 PM LOCAL ANNOUNCER Pulse 74 03/07/2024 4:20 PM LOCAL ANNOUNCER Temperature 36.4 C (97.6 F) 03/07/2024 4:20 PM LOCAL ANNOUNCER Respiratory Rate 18 07/25/2023 1:59 PM CDT [...] Description 08/29/2024 11:00 AM CDT Hospital Encounter [facility] [place] [address] [place] [address] Dakota Calderon MD [facility] [address] [place] [address] 08/29/2024 11:00 AM CDT Anesthesia Event [facility] [place] [address] [place] [address] Drake Jackson MD [address] [address] 08/29/2024 11:00 AM CDT - 08/29/2024 12:00 PM CDT Surgery [facility] [place] [address] [place] [address] Dakota Calderon MD [address] [place] [address] [address] [place] [address] LEFT ELBOW ULNAR NERVE DECOMPRESSION Scheduled Procedures Name Priority Associated Diagnoses Date/Ti me DECOMPRESSION ULNAR NERVE Cubital tunnel syndrome on left Left elbow pain 08/29/2024 11:00 AM CDT Health Maintenance Due Date Last Done Comments Albumin Creatinine Ratio, Urine 1957 Colon Cancer Screening-Colonoscopy 1957 Depression Screening 1957 Fall Risk Assessment 1957 Foot Exam 1957 Hepatitis C Screening 1957 Hepatitis B Screening 12/12/1975 Zoster Vaccine (1 of 2) 1976 Pneumococcal vaccine 65+ (2 of 2 - PPSV23) 07/29/2013 06/03/2013 DTaP/Tdap/Td Vaccine (2 - Td or Tdap) 10/30/2022 10/30/2012, 05/02/2001, 01/26/2001 Dilated Eye Exam 11/08/2022 11/08/2021, 08/02/2018 Abdominal Aortic Aneurysm (A AA) Screen 2022 Well Visit 65+ 2022 Covid-19 Vaccine (2023-2 5 season) 2023 10/05/2021, 03/27/2020, 03/06/2020 TSH Level 12/23/2023 12/22/2022, 04/28/2022 Hemoglobin A1C 09/05/2024 03/07/2024, 07/0 11/2023, 06/15/2023, Additional history exists Lipid Panel 09/25/2024 09/26/2023, 04/0 06/2023, 06/15/2023, Additional history exists Influenza Vaccine (Season Ended) 2024 12/20/19 23 Prostate Cancer Screening-PSA 02/14/2025, 12/09/2022, 03/09/2020, Additional history exists eGFR 05/27/2025 05/27/2024, 02/17, 11/21/2023, Additional history exists Medical Devices Implanted Type Area Specialized Language Instructor Device Identifier Shelf Expiration Date Model / Serial / Lot [employer] X [id number] Resolute [place] 3.5mm 2.1-2.7fr 38mm 140cm Rapid Exchange - [id number] Implanted:Qty: 1 on 11/14/2017 by Pepe Dawkins MD at [facility] Stent [employer] X 06/23/2019 [id number] X / / [id number] [employer] X [id number] Resolute [place] 4mm 2.1-2.7fr 8mm 140cm Rapid Exchange Radiopaque 1 - [id number] Implanted:Qty: 1 on 11/14/2017 by Pepe Dawkisn MD at [facility] Stent [employer] X 06/22/2019 [id number] X / / [id number] [employer] [id number] Xience Alpine 3.5mm 38mm 145cm Rapid Exchange Radiopaque 1 Access - [id number] Implanted:Qty: 1 on 11/16/2017 by Pepe Dawkins MD at [facility] [employer] 02/16/2020 [id number] / / [id number] [employer] [id number] Xience Alpine 3.5mm 38mm 145cm Rapid Exchange Radiopaque 1 Access - [id number] Implanted:Qty: 1 on 11/16/2017 by Pepe Dawkins MD at [facility] [employer] 05/21/2020 [id number] Procedures Procedure Name Priority Date/Time Associated Diagnosis Comments EGFR Routine 05/27/2024 10:44 AM CDT Kidney replaced by transplant POCT HEMOGLOBIN A1C Routine 03/07/2024 4 :33 PM LOCAL ANNOUNCER Type 2 diabetes mellitus with hyperglycemia, with long-term current use of insulin (HCC) LIPID PANEL Routine 09/26/2023 5:11 PM CDT Kidney transplanted Hyperlipidemia, unspecified hyperlipidemia type PSA SCREEN Routine 02/14/2023 10:31 AM LOCAL ANNOUNCER Kidney transplant recipient TSH Routine 12/22/2022 11:23 [...] MD LAB BLOOD ORDERABLES Final Resu lt [facility] Department [place] [address] * POCT hemoglobin A1c (03/07/2024 4:33 PM LOCAL ANNOUNCER) Hemoglobin A1C, POC 7.0 4.0 - 5.6 % Blood 03/07/2024 4:33 PM LOCAL ANNOUNCER Jane Mccarty MD POINT OF CARE TEST [...] revised on 2017. Triglycerides 100 <=149 mg/dL [facility] Comment: Interpretive Data Ages < or [...] revised on 2017. HDL 50 >=40 mg/dL [facility] Comment: Interpretive Data Ages < or [...] on 2017. LDL, calculated 62 <=129 mg/dL [facility] Comment: Interpretive Data Ages < or [...] revised on 2017. Non-HDL Cholesterol 82 mg/dL [facility] Comment: Interpretive Data Ages < or [...] last revised on 2017. Chol/HDL ratio 3 [facility] Blood 09/26/2023 5:11 PM CDT 09/26/2023 5:38 PM CDT Narrative [facility] - 09/26/2023 6:11 PM CDT PLEASE OBTAIN MAR, JUN, SEP AND DEC. us Glenna Garcia MD LAB BLOOD ORDERABLES Final Resu lt [facility] [place] [place] [address] * PSA screen (02/14/2023 10:31 AM LOCAL ANNOUNCER) PSA-Total 0.79 <=5.40 ng/mL [facility] Comment: Interpretive Data AGE SEX REFERENCE INTERVAL 0 minutes-150 years Female None 0 minutes-49 years Male None 50-59 years Male 0-3.90 60-69 years Male 0-5.40 70-79 years Male 0-6.20 80-150 years Male 0-6.20 The Stephen PSA Total assay procedure was used. Results from different manufacturers or methods may not be comparable. Serial testing should be performed using the same method. Current interpretive data last revised 21. Blood 02/14/2023 10:3 1 AM LOCAL ANNOUNCER 02/14/2023 10:58 AM LOCAL ANNOUNCER Marsha Oliver MD LAB BLOOD ORDERABLE S Final Result Performing Organization Address [facility] Co de Phone Number [facility] [place] [place] [address] * TSH (12/22/2022 11:23 AM CDT) Thyroid Stimulating Hormone 3.15 0.30 - 4.20 mcIUnit/mL [facility] Blood 12/22/2022 11:2 3 AM CDT 12/22/2022 11:43 AM CDT Emili Cazares MD LAB BLOOD ORDERABL ES Final Result Performing Organization Address [facility] Co de Phone Number [facility] [place] [place] [address] from Last 3 Months or Most Recently Relevant to Health Maintenance Insurance [facility] CHOICE PLUS [facility] H[facility]/PPO Address: [address] [address] [place] [address] ANTHEM ACCESS BLUE ACCESS OOS ANTHEM ACCESS ANTHEM ACCESS Advance Directives For more information, please contact: [phone] * Full Code (Latest Code Status on File) Date Activated Date Inactivated Comments 11/15/2017 7:35 PM 11/17/2017 3:30 PM * Full Code Date Activated Date Inactivated Comments 11/14/2017 6:44 PM 11/15/2017 7:35 PM Care Teams Manager Retail Sales Relationship Specialty Start Date End Date Glenna Garcia MD [address] [facility] [address] [place] [address] PCP - General Transplant 12/31/21 Trudi Davis, RN [address] [place] [address] Hoisting Laborer 09/23/19 Vinay Schmitt MD [address] [place] [address] Consulting Physician Cardiology 12/07/21
--- OUTSIDE RECORDS SUMMARY | 2024-08-28 17:31 | XMS_ITS | Encounter Summary ---
Author Organization [facility] Address [address] [place] [address] Phone Care Team Providers Care Putty Patcher Name Role Phone Ping Gooden Primary Care Provider Unavail able Ping Gooden MD Primary Care Provider Trudi Davis RN Unavailable [phone] Vinay Schmitt MD Unavailable Glenna Garcia MD Primary Care Provider [phone] Encounter Details Date Type Department Care Team (Late st Contact Info) Description 07/13/2017 Orders Only [facility] ProviderKristan MD [place] [address] Social History Tobacco Use Types Packs/Day Years Used Date Smoking Tobacco: Never Sex and Gender Information Value Date Recorded Sex Assigned at Not on file Legal 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 Gender Identity Not on file Sexual Orientation Not on file documented as of this encounter Plan of Treatment Upcoming Encounters Date Type Department Care Team (Latest Contact Info) Description 08/29/2024 11:00 AM CDT Hospital Encounter [facility] [place] [address] [place] [address] Dakota Calderon MD [address] [facility] [address] [address] 08/29/2024 11:00 AM CDT Anesthesia Event [facility] [place] [address] Drake Jackson MD [address] [facility] [address] [place] [address] 08/29/2024 11:00 AM CDT - 08/29/2024 12:00 PM CDT Surgery [facility] [place] [address] [place] [address] Dakota Calderon MD [address] [facility] [address] [place] [address] LEFT ELBOW ULNAR NERVE DECOMPRESSION Scheduled Procedures Name Priority Associated Diagnoses Date/Ti me DECOMPRESSION ULNAR NERVE Cubital tunnel syndrome on left Left elbow pain 08/29/2024 11:00 AM CDT documented as of this encounter Procedures Procedure Name Priority Date/Time Associated Diagnosis Comments DISCHARGE LABORATORY CUMULATIVE REPORT 07/13/2017 12:00 AM CDT documented in this encounter Results * DISCHARGE LABORATORY CUMULATIVE REPORT (07/13/2017 12:00 AM CDT) Narrative 07/13/2017 12:00 AM CDT Ordered by an unspecified provider. Historical Provider LAB BLOOD ORDERABLES Radha l Result documented in this encounter Visit Diagnoses Not on filedocumented in this encounter Care Teams Putty Patcher Relationship Specialty Start Date End Date Ping Gooden PCP - General 06/23/16 09/30/18 Ping Gooden MD [address] [place] [address] PCP - General 10/01/18 12/06/21 Glenna Garcia MD [address] [facility] [address] [place] [address] PCP - General Transplant 12/31/21 Trudi Davis, RN [address] [facility] [address] [place] [address] Public Relations Account Supervisor 09/23/19 Vinay Schmitt MD [address] [address] Consulting Physician Cardiology 12/07/21 documented as of this encounter
--- OUTSIDE RECORDS SUMMARY | 2024-08-28 17:31 | XMS_ITS ---
Author Organization [facility] Address [address] [place] [address] Care Team Providers Care Slasher Machine Operator Name Role Phone Unavailable Unavailable Unavailable Allergies, Adverse Reactions, Alerts This patient has no known allergies or adverse reactions. Problems This patient has no known problems.
== END 2024-08-28 14:54 | disposition home or self-care (01) ==
PROVIDERS: PCP Internal Medicine Critical Care Medicine; Visit Provider Internal Medicine Critical Care Medicine
DX: I10 Essential (primary) hypertension (principal)
CPT/HCPCS: 36415; 80053; 83036; 85025